=== PATIENT | female | born 2000 | race Caucasian/White ===

== ENCOUNTER 2024-06-01 17:00 | Emergency (ER) | payer SELFPAY ==
[2024-06-01 17:35] LABS: BASOPHILS ABSOLUTE AUTO 0.06 K/uL (0.00-0.20); BASOPHILS PERCENT AUTO 0.5 % (0.0-2.0); EOSINOPHILS ABSOLUTE AUTO 0.03 K/uL (0.00-0.50); EOSINOPHILS PERCENT AUTO 0.3 % (0.0-5.0); HEMATOCRIT 36.6 % (34.0-46.0); HEMOGLOBIN 12.6 g/dL (11.7-15.5); IMMATURE GRAN ABSOLUTE AUTO 0.01 10^3/uL (0.00-0.50); IMMATURE GRAN PERCENT AUTO 0.1 % (0.0-5.0); LYMPHOCYTES ABSOLUTE AUTO 3.41 K/uL (0.50-3.50); LYMPHOCYTES PERCENT AUTO 29.2 % (10.0-50.0); MEAN CORPUSCULAR HEMOGLOBIN 30.1 pg (28.2-33.3); MEAN CORPUSCULAR HGB CONC 34.4 g/dL (31.7-36.0); MEAN CORPUSCULAR VOLUME 87.4 fL (84.0-98.0); NEUTROPHILS ABSOLUTE AUTO 7.47 K/uL (1.40-7.00); NEUTROPHILS PERCENT AUTO 63.9 % (45.0-80.0); PLATELET COUNT,PLT 523 K/uL (150-350); RED BLOOD CELL COUNT 4.19 M/uL (3.77-5.09); WHITE BLOOD CELL COUNT,WBC 11.7 K/uL (4.0-10.2)
[2024-06-01 17:44] LABS: ALANINE AMINOTRANSFERASE,ALT 17 U/L (12-78); ALBUMIN 4.2 g/dL (3.4-5.0); ALKALINE PHOSPHATASE 77 IU/L (46-116); ANION GAP 15.9 meq/L (7-15); ASPARTATE AMNIOTRANSFERASE,AST 16 U/L (15-37); BILIRUBIN TOTAL 0.7 mg/dL (0.2-1.0); BLOOD UREA NITROGEN,BUN 9 mg/dL (7-18); CALCIUM 9.5 mg/dL (8.5-10.1); CARBON DIOXIDE,CO2 26.5 mmol/L (21.0-32.0); CHLORIDE,CL 100 mmol/L (98-107); CREATININE 0.87 mg/dL (0.51-1.17); ESTIMATED GFR 97 mL/min (>=60); ETHANOL BLOOD MEDICAL 0.006 g/dL (0.000-0.080); GLUCOSE RANDOM 114 mg/dL (70-99); POTASSIUM,K 3.4 mmol/L (3.5-5.1); PROTEIN TOTAL,TP 8.5 g/dL (6.4-8.2); SODIUM,NA 139 mmol/L (136-145)
[2024-06-01 17:52] LABS: APPEARANCE,URINE CLEAR; BILIRUBIN,URINE NEGATIVE (NEGATIVE); COLOR,URINE YELLOW; GLUCOSE,URINE NEGATIVE (NEGATIVE); KETONES,URINE NEGATIVE (NEGATIVE); LEUKOCYTE ESTERASE,URINE NEGATIVE (NEGATIVE); NITRITE,URINE NEGATIVE (NEGATIVE); OCCULT BLOOD,URINE NEGATIVE (NEGATIVE); PROTEIN,URINE NEGATIVE (NEGATIVE); UROBILINOGEN,URINE 0.2 E.U./dL (0.2-1.0)
[2024-06-01 17:59] LABS: BUPRENORPHINE SCREEN,URINE NEGATIVE (NEGATIVE); OXYCODONE SCREEN,URINE NEGATIVE (NEGATIVE)
[2024-06-01 18:02] LABS: AMPHETAMINES SCREEN, URINE NEGATIVE (NEGATIVE); BARBITURATE SCREEN,URINE NEGATIVE (NEGATIVE); BENZODIAZEPINES SCREEN,URINE NEGATIVE (NEGATIVE); COCAINE METABOLITES,URINE NEGATIVE (NEGATIVE); EDDP,URINE SCREEN NEGATIVE (NEGATIVE); METHAMPHETAMINES SCREEN, URINE NEGATIVE (NEGATIVE); TCA SCREEN,URINE NEGATIVE (NEGATIVE); THC SCREEN,URINE 50 NG/ML POSITIVE (NEGATIVE)
[2024-06-01] MEDS: LORazepam 2 MG/ML SDV IM ONE (23:13)
[2024-06-01] MEDS: Haloperidol Lactate 5 MG/ML SDV IM ONE (23:20)
[2024-06-01] MEDS: diphenhydrAMINE 50 MG/ML SDV IM ONE (23:21)
== END 2024-06-02 00:35 ==
LOC: EDBD → LL.ED 17:00
DX: F20.9 Schizophrenia, unspecified (principal); R45.1 Restlessness and agitation
CPT/HCPCS: 36415; 80053; 80143; 80305-QW; 80307; 81003; 81025; 85025; 96372; 99284; 99285; J1200; J1630; J2060